=== PATIENT | female | born 1990 | race Caucasian/White ===

== ENCOUNTER 2020-02-28 18:54 | Emergency (ER) | payer OTHER, SELFPAY ==
--- NOTE | 2020-02-28 19:18 | ED.GENADULT ---
HPI - General Adult General Chief complaint: Urogenital-Female Stated complaint: Pelvic Pain Time Seen by Provider: 02/28/20 19:52 Source: patient Mode of arrival: ambulatory Limitations: no limitations History of Present Illness HPI narrative: 30-year-old female patient presents to the [facility] with complaints of lower pelvic pain, pain with urination and frequency with urination. Patient states she found out today from a partner that she had been with 2 weeks ago that he had some penile discharge and was getting tested for gonorrhea. Patient denies any vaginal discharge except for what she calls her normal discharge . Patient states she did finish her period about 4 days ago and states that she is just been having her normal discharge from that. Patient denies any fevers, nausea, vomiting or diarrhea. Denies any or breast-feeding. Patient requesting be tested for STDs today. Review of Systems Review of Systems: Narrative: CONSTITUTIONAL: Denies fever, chills, or sweats. EYES: Denies visual changes, redness, or discharge. ENT: Denies rhinorrhea, congestion, sore throat, or otalgia. CARDIOVASCULAR: Denies chest pain, palpitations, or edema. RESPIRATORY: Denies cough or dyspnea. GASTROINTESTINAL: Positive lower pelvic pain, nausea, denies vomiting, or diarrhea. GENITOURINARY: Positive dysuria denies hematuria. Denies vaginal discharge or vaginal itching. SKIN: Denies rash or itching. MUSCULOSKELETAL: Denies back pain, joint pain, or myalgia. NEUROLOGIC: Denies headache, numbness, or weakness. PSYCHIATRIC: Denies anxiety or depression. PMFSH Comments At the time of my signature I agree with nursing past medical history, surgical, social, and family history. There is no relevant family history pertinent to the presenting complaint. Exam Narrative: Exam Narrative: GENERAL: Well-appearing, well-nourished, and in no acute distress. HEAD: Normocephalic, atraumatic. EYES: PERRLA and EOMI. ENT: Nares clear, no rhinorrhea or epistaxis. Mucous membranes moist. NECK: Supple. No lymphadenopathy CHEST: Clear to auscultation. No respiratory distress. HEART: Regular rate and rhythm. No murmur heard. Normal peripheral pulses. ABDOMEN: Soft, flat, nondistended. No guarding, rebound tenderness, or rigid. No pulsatilla masses. Bowel sounds present in all four quadrants. No organomegaly. Negative Dorado?s sign. No periumbicial tenderness. Supra public tenderness, no distension. Good femoral pulses bilaterally. No hernia noted. No scars or surface trauma. No CVA tenderness on percussion : Normal external female genitalia. OS is closed. No adnexal fullness or TTP. No CVA tenderness to percussion. There is some yellow discharge noted on exam. EXTREMITIES: Normal range of motion. No edema. SKIN: Warm, dry, no rash. NEURO: No focal deficits. Alert and oriented x3. Course Vital Signs Vital signs: Vital Signs Temperature 36.5 C 02/28/20 19:32 Pulse Rate 64 02/28/20 19:32 Respiratory Rate 18 02/28/20 19:32 Blood Pressure 100/70 02/28/20 19:32 Pulse Oximetry 100 02/28/20 19:32 Temperature 36.5 C 02/28/20 19:32 Pulse Rate 64 02/28/20 19:32 Respiratory Rate 18 02/28/20 19:32 Blood Pressure 100/70 02/28/20 19:32 Pulse Oximetry 100 02/28/20 19:32 Vital signs reviewed Medical Decision Making Differential Diagnosis Differential Diagnosis: Differential diagnosis: Uncomplicated lower UTI, uncomplicated UTI, pyelonephritis, gonorrhea, chlamydia, Trichomonas, bacterial vaginosis, herpes, HIV, yeast infection, urinary tract infection. Discussed with patient that we will go ahead and take a sample of her urine and test her for possible UTI. Discussed with patient we will also do a pelvic exam and swab her for gonorrhea and chlamydia. Discussed with her we will go ahead and treat her for gonorrhea and chlamydia today and send her home with antibiotics for possible trichomonas. Discussed with her I normally tell pe
[2020-02-28 19:32] VITALS: BP 100/70; PULSE 64; RESP 18; TEMP 36.5; O2SAT 100
[2020-02-28] MEDS: cefTRIAXone 250 MG VIAL IM (20:25)
[2020-02-28] MEDS: LIDOCAINE HCL 1% LOCAL INJ 20 ML VIAL IM (20:26)
[2020-02-28] MEDS: AZITHROMYCIN 250 MG TABLET 1000 MG PO (20:26)
== END 2020-02-28 20:49 | disposition home or self-care (01) ==
PROVIDERS: Emergency Provider Nurse Practitioner Family
DX: N30.01 Acute cystitis with hematuria (principal); Z11.3 Encounter for screening for infections with a predominantly sexual mode of transmission
CPT/HCPCS: 81003; 81025; 87086; 87088; 87491; 87591; 87661; 96372; 99204; A9270; G0463; J0696